=== PATIENT | female | born 1975 | race Caucasian/White ===

== ENCOUNTER 2019-11-13 19:15 | Emergency (ER) | payer OTHER, MEDICAID, SELFPAY ==
[2019-11-13 20:02] VITALS: BP 135/84; PULSE 84; RESP 22; TEMP 37.5; O2SAT 100; BMI 28.1
--- NOTE | 2019-11-13 20:36 | DI.RAD.S_ITS ---
PROCEDURE: XR CHEST 2V INDICATIONS: sob, fever, ill for 7d+ TECHNIQUE: 2 views of the chest were acquired. COMPARISON: None. FINDINGS: Surgical changes and devices: None. Lungs and pleura: Lungs are clear. No pleural effusions or pneumothorax. Mediastinum: Mediastinal contours are normal. Heart size is normal. Bones and chest wall: No suspicious bony abnormalities. Soft tissues appear unremarkable. IMPRESSION: Normal chest. Dictated by: Arminda Giron M.D. on 11/13/2019 at 21:29 Approved by: Arminda Giron M.D. on 11/13/2019 at 21:30
[2019-11-13] MEDS: ACETAMINOPHEN 325 MG TABLET 650 MG PO (20:55)
[2019-11-13] MEDS: IBUPROFEN 400 MG TABLET PO (20:56)
[2019-11-13] MEDS: ALBUTEROL HFA PREPACK 1 BOX MISC (21:02)
[2019-11-13 21:03] VITALS: PULSE 88; RESP 20; O2SAT 100
--- NOTE | 2019-11-13 21:45 | ED.URI ---
HPI - URI/Sore Throat <YUMIKO Nieto - Last Filed: 11/13/19 22:27> General Chief Complaint: Fever Stated Complaint: fever,sob Time Seen by Provider: 11/13/19 19:58 Source: patient Mode of arrival: Wheelchair Limitations: no limitations History of Present Illness HPI Narrative: This is a 44 year female, former smoker, who presents to ED with her with chief complain of short of breath, can't get enough enough breaths, fever, sore throat and states sick for days and unable to provide the duration of her illness. Several questions were deferred to her , Connie blanco. Patient reports she is concerned for ray virus exposure from her co-worker and her spouse's coworker. Patient reports her spouse was seen at [facility] Emergency room and had negative test results for influenza but no coronal virus test has been done and was instructed to self isolation. Patient contacted her primary care physician Dr. Braswell and was referred to come in to ED for an evaluation and coronavirus test to be done. Patient reports subjective fever and intermittent nausea for a week. Patient denies chest pain. Patient denies chronic illnesses be size hypothyroidism and Emi's. Patient states she has been hydrating well with water. Related Data Previous Rx's Medication Instructions Recorded fluconazole [Diflucan] 150 mg PO QDAY #1 tab 10/13/17 Allergies Allergy/AdvReac Type Severity Reaction Status Date / Time erythromycin base Allergy Unknown Unverified 12/10/17 13:00 Review of Systems <YUMIKO Nieto - Last Filed: 11/13/19 22:27> Review of Systems Narrative: General: Denies (+) subjective fever and chills, fatigue, malaise, sweats. HEENT: Denies sinus pain, ear pain, (+) sore throat, difficulty swallowing, dizziness. Respiratory: Denies (+) shortness of breath, dyspnea, (+) cough, wheezing, hemoptysis, sputum. Cardiovascular: Denies chest pain, palpitations, orthopnea, edema. Gastrointestinal: Denies (+) intermittent nausea, vomiting, abdominal pain, diarrhea, constipation, melena. : Denies dysuria, frequency, incontinence, hematuria, urinary retention. Musculoskeletal: Denies weakness, joint pain or bony pain. Skin: Denies rash, skin lesions, or other. Neurologic: Denies weakness, headache, numbness, change in speech, confusion, seizures, incoordination. Psychiatric: No concerning psychosocial issues. 12-point review of systems is negative except for those stated above. Patient History <YUMIKO Nieto - Last Filed: 11/13/19 22:27> Medical History Anxiety (Acute) Depression (Acute) Emi's disease (Acute) Hypothyroidism (Acute) Leg muscle spasm (Acute) Melanoma (Acute) Migraine headache (Acute) Surgical History History of lumpectomy Status post breast lumpectomy Status post delivery Status post delivery Status post endometrial ablation Social History Smoking Status: Former smoker Smoking Status: Former smoker alcohol intake frequency: 0-2 drinks per day Substance Use Type: marijuana Exam <YUMIKO Nieto - Last Filed: 11/13/19 22:27> Narrative Exam Narrative: GEN: Alert, oriented x 3, ill appearing and well-nourished, and in mild distress. Head: Normal cephalic, atraumatic. No scalp or temporal tenderness, palpable mass or rash. EYES: Pupils are equal, round, and reactive to light and accommodation. Extraocular muscles are intact bilaterally. There is no subconjunctival hemorrhage, exudate and sclera non-icteric. ENT: Bilateral auditory canals and tympanic membranes clear. Hearing grossly intact. Nose without bleeding, purulent discharge or deviation. Clear nasal drips noted. Facial sinuses nontender to palpate. Mucous membrane moist, no mucosal lesion. Throat with erythema and mild tonsillar hypertrophy without or exudate. Uvula in midline, airway patent. Neck: Trachea in midline. No JVD, non-tender without lymphadenopathy. No masses or thyroid megaly. Supple, non-tender and no meningeal signs. CARDIAC: Normal regular rate and rhythm without murmurs, gallops, or rubs. No chest wall tenderness. No peripheral edema, cyanosis or pallor. Capillary refill is less than 2 seconds. RESPIRATORY: Lungs are clear to auscultate bilaterally. No cough, wheezes, rales, or rhonchi. No stridor, respiratory distress, increase work of breathing, or accessary muscle used. Patient is able to speak full sentences without difficulty. ABD: Abdomen soft, nontender and non-distended. No guarding or rebound tenderness to palpate. Bowel sounds are normal in all 4 quadrants. There is no palpable masses or organomegaly. EXT: Full painless ROM of all extremities with no loss of sensation, strength, effusion or edema. SKIN: Warm, dry, normal color for patient. No erythema, lesions or rash over visible areas. BACK: Nontender without deformity or crepitance. No flank tenderness. NEUROLOGICAL: Alert and oriented to place, time and person. Sensation and motor function intact bilaterally. No facial droops, dysphasia. PSYCHIATRIC: Anxious and tearful when patient's spouse could not be with her in the room. Screaming and crying due to discomfort during nasal swab and throat swabs. Initial Vital Signs Initial Vital Signs: Vital Signs Temperature 99.5 F 11/13/19 20:02 Pulse Rate 84 11/13/19 20:02 Respiratory Rate 22 11/13/19 20:02 Blood Pressure 135/84 11/13/19 20:02 Pulse Oximetry 100 11/13/19 20:02 <Nicola Cohn DO - Last Filed: 11/13/19 22:35> Initial Vital Signs Initial Vital Signs: Vital Signs Temperature 99.5 F 11/13/19 20:02 Pulse Rate 84 11/13/19 20:02 Respiratory Rate 22 11/13/19 20:02 Blood Pressure 135/84 11/13/19 20:02 Pulse Oximetry 100 11/13/19 20:02 Scores <YUMIKO Nieto - Last Filed: 11/13/19 22:27> GCS Esteban coma scale eye opening: Spontaneous Esteban coma scale verbal response: Orientated Esteban coma scale motor response: Obey commands Buckeye coma scale total score: 15 Course <YUMIKO Nieto - Last Filed: 11/13/19 22:27> Orders Ordered: ED Orders 11/13/19 20:36 XR chest 2V Stat 11/13/19 20:45 Influenza A & B (PCR) Stat Discontinued Medications Acetaminophen (Tylenol) 650 mg PO NOW ONE Stop: 11/13/19 20:37 Last Admin: 11/13/19 20:55 Dose: 650 mg Documented by: CHANO Albuterol (Ventolin Hfa Prepack) 1 box MISC SEEINSTR ONE Stop: 11/13/19 20:37 Last Admin: 11/13/19 21:02 Dose: 1 box Documented by: PRATIK Ibuprofen (Advil) 400 mg PO NOW ONE Stop: 11/13/19 20:37 Last Admin: 11/13/19 20:56 Dose: 400 mg Documented by: CHANO Ondansetron HCl (Zofran Odt) 4 mg SL NOW ONE Stop: 11/13/19 20:41 Vital Signs Vital signs: Vital Signs - 8 hr 11/13/19 20:02 11/13/19 21:03 Temperature 99.5 F Pulse Rate 84 88 Respiratory Rate 22 20 Blood Pressure 135/84 Pulse Oximetry 100 100 <Nicola Cohn DO - Last Filed: 11/13/19 22:35> Orders Ordered: ED Orders 11/13/19 20:36 XR chest 2V Stat 11/13/19 20:45 Influenza A & B (PCR) Stat Discontinued Medications Acetaminophen (Tylenol) 650 mg PO NOW ONE Stop: 11/13/19 20:37 Last Admin: 11/13/19 20:55 Dose: 650 mg Documented by: CHANO Albuterol (Ventolin Hfa Prepack) 1 box MIS SEEINSTR ONE Stop: 11/13/19 20:37 Last Admin: 11/13/19 21:02 Dose: 1 box Documented by: PRATIK Ibuprofen (Advil) 400 mg PO NOW ONE Stop: 11/13/19 20:37 Last Admin: 11/13/19 20:56 Dose: 400 mg Documented by: CHANO Ondansetron HCl (Zofran Odt) 4 mg SL NOW ONE Stop: 11/13/19 20:41 Vital Signs Vital signs: Vital Signs - 8 hr 11/13/19 20:02 11/13/19 21:03 Temperature 99.5 F Pulse Rate 84 88 Respiratory Rate 22 20 Blood Pressure 135/84 Pulse Oximetry 100 100 MDM - URI/Sore Throat <YUMIKO Nieto - Last Filed: 11/13/19 22:27> Differential Diagnosis Differential diagnosis: Likely upper respiratory infection, viral infection, influenza, pharyngitis and other (COVID-19) Medical Records Attestation: I reviewed the patient's medical records. Lab Data Attestation: I reviewed the patient's lab results. Labs: Lab Results 11/13/19 Range/Units 20:45 Influenza A (RT-PCR) Flu a negative (NEGATIVE) Influenza B (RT-PCR) Flu b negative (NEGATIVE) Point of Care Testing Rapid Strep A Negative Imaging Data Chest x-ray: Radiologist's Impression: [address] [address] XRay Report Signed Patient: Trinity Farmer MMR#: [id number] : 1975Acct:[id number] Age/Sex: 44 / FDate of Service: 11/13/19 Loc: ED Accession Number: [id number] Procedure: XR chest 2V Ordering Provider: Martín Pride PROCEDURE: XR CHEST 2V INDICATIONS: sob, fever, ill for 7d+ TECHNIQUE: 2 views of the chest were acquired. COMPARISON: None. FINDINGS: Surgical changes and devices: None. Lungs and pleura: Lungs are clear. No pleural effusions or pneumothorax. Mediastinum: Mediastinal contours are normal. Heart size is normal. Bones and chest wall: No suspicious bony abnormalities. Soft tissues appear unremarkable. IMPRESSION: Normal chest. Dictated by: Arminda Giron M.D. on 11/13/2019 at 21:29 Approved by: Arminda Giron M.D. on 11/13/2019 at 21:30 [facility] Narrative Medical decision making narrative: This is a 44-year-old female who presents to ED with concerns for upper respiratory infection for days and reports short of breath and can take full breaths with chest tightness. Patient is concerned for coronary prior worse exposure from her who had exposure to co-worker with positive coronavirus and also her co-worker who was diagnosed with coronavirus. Flu swab and strep throat swabs were negative. Chest x-ray was negative for acute findings. Viral signs stable and patient is afebrile. Patient does not have chronic medical conditions including hypertension, diabetes or respiratory disease. Patient does appears to be fatigue but was able to tolerate 2 large glasses of water while waiting for patient's test results. Patient was provided with albuterol MDI and spacer teaching by RT. Patient reports albuterol in her helped her with chest tightness and breathing difficulty. When patient was really re-evaluated, increase air movement and clear lung sounds to auscultate in all lobes. Emphasized self isolation for next 3-5 days until patient hears ray virus result and to extend self isolation if result comes back as positive 2-3 weeks with fever free for 72 hours or until she feels better whichever comes later. Patient advised to continue with supportive care and to use [id number] Tylenol and or Motrin for fever and discomfort and to use [id number] Mucinex for cold symptoms. Patient declined work off note since patient is already working out at home at this time. Return precautions discussed with the patient and patient verbalized understanding and agreement with treatment plan. <Nicola Cohn, - Last Filed: 11/13/19 22:35> Lab Data Labs: Lab Results 11/13/19 Range/Units 20:45 Influenza A (RT-PCR) Flu a negative (NEGATIVE) Influenza B (RT-PCR) Flu b negative (NEGATIVE) Point of Care Testing Rapid Strep A Negative Discharge Plan Departure Patient Disposition: Home Clinical Impression: Viral infection Upper respiratory infection Qualifiers: URI type: unspecified URI Qualified Code(s): J06.9 - Acute upper respiratory infection, unspecified Instructions: DI for Viral Upper Respiratory Infection -- Adult Activity Restrictions/Additional Instructions: You have been diagnosed with [viral illness and upper respiratory infection. Strep throat and influenza swabs were negative today. Chest x-ray small does not indicate acute findings such as infiltrate/pneumonia. Ray virus swab has been sent out to lab and the turnaround time for result will take up to 3-5 days. Please self isolate herself until you hear from us with the result. Please use good hand/cough hygiene to prevent transmitting illness to others. Please keep personal distance about 6 ft away from others.]. What to do: *Take your medications as directed. You were medicated with Tylenol and Motrin while in ED for discomfort. You are able to tolerate fluids without difficulty. Your provided with albuterol inhaler with spacer and teaching has been provided by respiratory therapy. Please use inhaler 2 puffs every 4-6 hours as needed for short of breath, can take full breaths, frequent cough, wheezing, or chest tightness. You can pick out hand [id number] Mucinex for your cold symptoms as well. This will help with cough and congestion. *Follow up with your primary care provider, call for an appointment. As informed, work note has been deferred since you are already working at home at this time. Let them know you were seen in the ED and that we asked you to be seen in follow up. *Return to ED if you have any new, worsening, or concerning symptoms, such as [chest pain, breathing difficulty, unable to tolerate fluids, fever not managed with Tylenol and or Motrin, or any acute concerns]. Prescriptions: No Action fluconazole [Diflucan] 150 MG tablet 150 mg PO QDAY Qty: 1 RF: 0 Referrals: Ajit Braswell MD [Primary Care Provider] - <Nicola Cohn DO - Last Filed: 11/13/19 22:35> Sign Out Provider Sign Out Attestation: Dr Cohn Co-Sign Statement: I was available for consultation during this patient's emergency department visit. This chart is signed by myself for administrative purposes only. I did not have direct contact with this patient during this visit. They were seen independently by the APC.
[2019-11-13 21:54] LABS: Influenza A - CEPHEID Flu A NEGATIVE (NEGATIVE); Influenza B - CEPHEID Flu B NEGATIVE (NEGATIVE)
[2019-11-13 22:30] VITALS: BP 123/80; PULSE 76; RESP 18; TEMP 36.8; O2SAT 100
[2019-11-20 23:02] LABS: COVID19 Sendout Not Detected (Not Detected)
== END 2019-11-13 22:35 | disposition home or self-care (01) ==
PROVIDERS: Emergency Provider Nurse Practitioner Family; PCP Family Medicine
DX: Z20.828 Contact with and (suspected) exposure to other viral communicable diseases (principal); J06.9 Acute upper respiratory infection, unspecified; R50.9 Fever, unspecified; R53.83 Other fatigue
CPT/HCPCS: 71046; 87502; 87635; 87880; 94640; 99283

== ENCOUNTER → 2020-04-19 17:10 | Outpatient (CLI) | payer OTHER, MEDICAID, SELFPAY ==
[2020-04-19 18:25] LABS: Free T3, Triiodothyronine Free 3.04 pg/mL (2.77-5.27); Free T4, Direct Thyroxine 0.83 ng/dL (0.78-2.19)
[2020-04-19 18:38] LABS: Thyroid Stimulating Hormone 5.29 uIU/mL (0.47-4.68)
== END ==
PROVIDERS: PCP Family Medicine; Referring Provider Family Medicine; Visit Provider Family Medicine
DX: E03.9 Hypothyroidism, unspecified (principal)
CPT/HCPCS: 36415; 84439; 84443; 84481

== ENCOUNTER → 2020-05-25 15:00 | Outpatient (CLI) | payer OTHER, MEDICAID, SELFPAY | PROVIDERS: PCP Family Medicine; Referring Provider Family Medicine; Visit Provider Family Medicine | DX: R20.2 Paresthesia of skin (principal) | CPT/HCPCS: 95886; 95911 ==

== ENCOUNTER → 2020-05-30 16:40 | Outpatient (CLI) | payer OTHER, MEDICAID, SELFPAY ==
--- NOTE | 2020-05-30 16:48 | DI.RAD.S_ITS ---
PROCEDURE: XR WRIST RT 2V INDICATIONS: BILAT WRIST PAIN TECHNIQUE: 3 views of the wrist were acquired. COMPARISON: [facility], , WRIST MINIMUM 3 VIEWS LEFT, 01/02/2015, 11:23. FINDINGS: Bones: No fractures or dislocations. No suspicious bony lesions. Soft tissues: No suspicious soft tissue calcifications. IMPRESSION: No fracture. If the patient's symptoms do not improve recommend followup radiographs in 10 days to assess for healing sclerosis/occult injury. Dictated by: Portillo Clayton M.D. on 05/31/2020 at 9:06 Approved by: Portillo Clayton M.D. on 05/31/2020 at 9:08
--- NOTE | 2020-05-30 16:48 | DI.RAD.S_ITS ---
PROCEDURE: XR WRIST LT 2V INDICATIONS: BILAT WRIST PAIN TECHNIQUE: 2 views of the wrist were acquired. COMPARISON: [facility], , WRIST MINIMUM 3 VIEWS LEFT, 01/02/2015, 11:23. FINDINGS: Bones: No fractures or dislocations. No suspicious bony lesions. Mild 1st CMC and triscaphe joint degeneration. Soft tissues: No suspicious soft tissue calcifications. IMPRESSION: Minimal degenerative changes. If the patient's pain or other symptoms persist, consider further evaluation with MRI Dictated by: Portillo Clayton M.D. on 05/31/2020 at 9:14 Approved by: Portillo Clayton M.D. on 05/31/2020 at 9:20
== END ==
PROVIDERS: PCP Family Medicine; Referring Provider Family Medicine; Visit Provider Family Medicine
DX: M25.531 Pain in right wrist (principal); M25.532 Pain in left wrist
CPT/HCPCS: 73100